=== PATIENT | male | born 1965 | race Two or more races ===

== ENCOUNTER 2023-06-11 17:03 | Emergency (ER) | payer MEDICAID, OTHER ==
[~2023-06-11] VITALS: Ht 167.6 cm; Wt 74.4 kg
[2023-06-11] MEDS ORDERED: CIPR2.5D14 LEFTEYE (18:38)
[2023-06-11 18:50] VITALS: BP 145/80; TEMP 99; O2SAT 99
== END 2023-06-11 18:50 | disposition home or self-care (01) ==
LOC: ER 17:09
DX: H57.8A2 Foreign body sensation, left eye (principal); H11.32 Conjunctival hemorrhage, left eye; H20.9 Unspecified iridocyclitis; I10 Essential (primary) hypertension

== ENCOUNTER 2023-08-18 14:22 | Emergency (ER) | payer OTHER ==
[~2023-08-18] VITALS: Ht 167.6 cm; Wt 74.8 kg
[~2023-08-18 14:22] MED LIST: CIPR2.5D14 LEFTEYE
[2023-08-18 15:36] LABS: BASOPHILS % (AUTO) 0.5 % (0.0-2.0); EOSINOPHILS # (AUTO) 0.4 K/uL (0.0-0.7); EOSINOPHILS % (AUTO) 6.7 % (0.0-6.0); HEMATOCRIT 43 % (39-51); HEMOGLOBIN 14.7 g/dL (13.5-17.5); LYMPHOCYTES # (AUTO) 1.5 K/uL (0.8-4.8); MEAN CORPUSCULAR HEMOGLOBIN 31 PG (26.0-33.0); MEAN CORPUSCULAR HGB CONC 34 g/dl (31.0-36.0); MEAN CORPUSCULAR VOLUME 89 fL (80-96); MONOCYTES # (AUTO) 0.6 K/uL (0.1-1.30); MONOCYTES % (AUTO) 10.6 % (2.0-12.0); NEUTROPHILS # (AUTO) 3.2 K/uL (1.8-8.9); NEUTROPHILS % (AUTO) 56.2 % (43.0-81.0); PLATELET COUNT (AUTO) 267 K/uL (150-450); RED BLOOD CELL COUNT(AUTO) 4.82 MIL/uL (4.5-6.0); RED CELL DISTRIBUTION WIDTH 12.7 % (11.5-15.0); WHITE BLOOD COUNT (AUTO) 5.7 K/uL (4.3-11.0)
[2023-08-18] MEDS ORDERED: IOHEXOL-300 100 ML VIAL IV ONE (15:46)
[2023-08-18] MEDS ORDERED: IV NS 0.9% 250 ML IV ONE (15:46)
[2023-08-18] MEDS ORDERED: CT SWABBABLE VALVE TRANS SET 1 EA INFUS.SET MC ONE (15:46)
[2023-08-18 15:52] LABS: ALBUMIN 3.5 g/dL (3.4-5.0); BILIRUBIN,TOTAL 0.5 mg/dL (0.2-1.0); CALCIUM, SERUM 8.7 mg/dL (8.5-10.1); CREATININE 0.7 mg/dL (0.6-1.3); POTASSIUM 3.8 mmol/L (3.5-5.1); TOTAL PROTEIN, SERUM 7.1 g/dL (6.4-8.2)
[2023-08-18] MEDS ORDERED: IBUP-1955 PO (17:50)
[2023-08-18] MEDS ORDERED: CYCL5TAB PO (17:50)
[2023-08-18 17:57] LABS: APPEARANCE,URINE CLEAR (CLEAR); BILIRUBIN,URINE NEGATIVE (NEGATIVE); BLOOD, URINE NEGATIVE Ery/uL (NEGATIVE); COLOR,URINE YELLOW (YELLOW); KETONES,URINE NEGATIVE (NEGATIVE); LEUKOCYTE ESTERASE ,URINE NEGATIVE (NEGATIVE); NITRITE, URINE NEGATIVE (NEGATIVE); PH,URINE 5.5 (5.0-8.0); PROTEIN,URINE NEGATIVE (NEGATIVE); UGLUCOSE NEGATIVE (NEGATIVE); UROBILINOGEN,URINE 0.2 EU/dL (0.2)
[2023-08-18 18:30] VITALS: BP 138/77; TEMP 98.2; O2SAT 99
== END 2023-08-18 18:31 | disposition home or self-care (01) ==
LOC: ER 14:28
DX: R07.81 Pleurodynia (principal); M54.6 Pain in thoracic spine; I10 Essential (primary) hypertension; Z79.899 Other long term (current) drug therapy
CPT/HCPCS: 99285; 71260; 93005; 74177; 85025; 83690; 81003; 36415; 80053; 84484; J7050; Q9967

== ENCOUNTER 2024-03-08 11:07 | Emergency (ER) | payer OTHER ==
[~2024-03-08] VITALS: Ht 172.7 cm; Wt 72.6 kg
[~2024-03-08 11:07] MED LIST changes: +CYCL5TAB PO; +IBUP-1955 PO
[2024-03-08] MEDS ORDERED: LIDOCAINE 1% INJ 50 ML MDV IJ ONE (11:42)
[2024-03-08] MEDS ORDERED: LIDOCAINE HCL/MPF 1% 30 ML VIAL IJ ONE (11:48)
[2024-03-08] MEDS: CEFAZOLIN 1 GM in IV D5W 50 ML IV ONE (12:14)
[2024-03-08] MEDS: LIDOCAINE HCL/PF 1% 30 ML VIAL TP ONE (12:15)
[2024-03-08] MEDS ORDERED: CEPH-570 PO (13:01)
[2024-03-08] MEDS ORDERED: OXYC-128 PO (13:01)
[2024-03-08 13:29] VITALS: BP 168/90; TEMP 98.6; O2SAT 99
== END 2024-03-08 13:43 | disposition home or self-care (01) ==
LOC: ER 11:07
DX: S62.635A Displaced fracture of distal phalanx of left ring finger, initial encounter for closed fracture (principal); Z89.022 Acquired absence of left finger(s); I10 Essential (primary) hypertension; Z79.1 Long term (current) use of non-steroidal anti-inflammatories (NSAID); Z79.891 Long term (current) use of opiate analgesic; Z79.899 Other long term (current) drug therapy; X58.XXXA Exposure to other specified factors, initial encounter; Y93.89 Activity, other specified; Y92.89 Other specified places as the place of occurrence of the external cause; Y99.8 Other external cause status
CPT/HCPCS: 12002; 29125; 73120; 96365; 99284; J0690; J3490; J7030; J7060